=== PATIENT | male | born 1980 | race Caucasian/White ===

== ENCOUNTER 2017-12-21 21:03 | Emergency (ER) | payer BC, OTHER ==
[2017-12-21 21:14] VITALS: BP 152/104
[2017-12-21] MEDS ORDERED: Ibuprofen TAB* 400 MG PO ONE (22:23)
--- NOTE | 2017-12-21 22:36 | UC ---
Lamont Shankar Gabriel scribed for Rufina Dias MD on 12/21/17 at 2214 . Upper Extremity HPI - HPI Summary HPI Summary: This patient is a 37 year old M presenting to [facility] with a chief complaint of bilateral shoulder pain that began yesterday. Pt had a general illness two days ago which caused mild vomiting and diarrhea that has since resolved. The last episode of diarrhea was this morning. The patient rates the pain 7/10 in severity. Pt states the pain will radiate across his upper thoracic cavity and slightly into his neck. Aches so much it prevented sleep last night. Patient reports nausea. Patient denies ABD pain, rashes, numbness/tingling, and urinary symptoms. Pt expressed some concern for a possible MD, but he has no shortness of breath or other symptoms. Typically blood pressure is normal, although he does not do checks all that often. 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 Drinks 1-2 beers 3 or 4 nights per week. - History of Current Complaint Chief Complaint: UCUpperExtremity Stated Complaint: SHOULDER PAIN Time Seen by Provider: 12/21/17 22:05 Hx Obtained From: Patient Onset/Duration: Still Present Severity Initially: Moderate Severity Currently: Moderate Pain Intensity: 7 Pain Scale Used: 0-10 Numeric Associated Signs And Symptoms: Positive: Other - nausea - Allergies/Home Medications Allergies/Adverse Reactions: Allergies Allergy/AdvReac Type Severity Reaction Status Date / Time No Known Allergies Allergy Verified 12/21/17 21:14 PMH/Surg Hx/FS Hx/Imm Hx Previously Healthy: Yes Other History Of: Negative For: Anticoagulant Therapy - Surgical History Surgical History: Yes Surgery Procedure, Year, and Place: tooth extraction - Family History Known Family History: Positive: Hypertension - father Negative: Cardiac Disease, Seizure Disorder, Blood Disorder - Social History Occupation: Employed Full-time Lives: With Family - and daughter Alcohol Use: Weekly Alcohol Amount: 4-5 times a week Substance Use Type: None Smoking Status (MU): Former Smoker Review of Systems Constitutional: Fatigue, Other Skin: Negative Eyes: Negative ENT: Negative Respiratory: Negative Cardiovascular: Negative Gastrointestinal: Nausea Genitourinary: Negative Motor: Negative Neurovascular: Negative Musculoskeletal: Arthralgia, Other: - bilateral UE pain Neurological: Negative Psychological: Negative Is Patient Immunocompromised?: No All Other Systems Reviewed And Are Negative: Yes Physical Exam Triage Information Reviewed: Yes Appearance: Well-Nourished, Ill-Appearing - looks fatigued., Pain Distress - moderate Vital Signs: Initial Vital Signs Temp 97.7 F 12/21/17 21:11 Pulse 67 12/21/17 21:11 Resp 18 12/21/17 21:11 BP 152/104 12/21/17 21:11 Pulse Ox 99 12/21/17 21:11 ENT: Positive: Pharynx normal Neck exam: Other - no bony spinal tenderness. Neck: Positive: Supple, Nontender, No Lymphadenopathy Respiratory: Positive: Lungs clear, Normal breath sounds Cardiovascular: Positive: RRR, No Murmur Abdominal Exam: Normal Abdomen Description: Positive: Nontender, No Organomegaly, Soft Bowel Sounds: Positive: Present Musculoskeletal: Positive: Strength Intact, ROM Intact - bilateral full rom in shoulders. Neurological Exam: Normal Neurological: Positive: Alert, Muscle Tone Normal Psychological Exam: Other - fatigued, mildly depressed affect. Skin Exam: Normal Diagnostics - Laboratory Diagnostic Studies Completed/Ordered: labs to check blood count, rule out liver dysfunction. - EKG Cardiac Rate: NL Cardiac Rhythm: Sinus: Normal Ectopy: None ST Segment: Normal Upper Extremity Course/Dx - Course Course Of Treatment: ibuprofen for ache. labs to assess--consider gall bladder disease, rule out Lyme disease. BP noted and advised to follow up with PCP. - Differential Dx/Diagnosis Provider Diagnoses: myalgias NYD following episodes of vomiting. Elevated blood pressure without a previous diagnoses of hypertension Discharge - Sign-Out/Discharge Documenting (check all that apply): Discharge/Admit/Transfer - Discharge Plan Condition: Critical Disposition: HOME Patient Education Materials: Gastroenteritis (ED) Referrals: Rowdy Cruz MD [Primary Care Provider] - Additional Instructions: The cause of the ache in your shoulders is not clear. It could be related to a viral illness which caused nausea and vomiting. Your EKG is normal and does not suggest heart strain. The lab work will check for liver inflammation, and also screen for Lyme disease. Use ibuprofen 600 to 800 mg three times daily for control of pain. Follow up with Dr. Cruz for a repeat blood pressure reading and reassessment of symptoms if they persist. Your blood pressure was elevated during today's visit, 152/104. Please follow up with your primary care provider in 1-2 weeks. - Billing Disposition and Condition Condition: CRITICAL Disposition: HOME The documentation as recorded by the Lamont hidalgo Gabriel accurately reflects the service I personally performed and the decisions made by me, Ruifna Dias MD.
[2017-12-22 10:58] LABS: Hematocrit 45 % (42-52); Hemoglobin 15.4 g/dl (14.0-18.0); Mean Corpuscular HGB Conc 35 g/dl (31-36); Mean Corpuscular Hemoglobin 30 pg (27-31); Mean Corpuscular Volume 87 fL (80-94); Platelet Count 197 10^3/ul (150-450); Red Blood Count 5.11 10^6/ul (4.0-5.4); Red Cell Distribution Width 13 % (10.5-15); White Blood Count 7.5 10^3/ul (3.5-10.8)
[2017-12-22 11:09] LABS: EGFR Non-African American 105.1 (>60)
[2017-12-22 11:21] LABS: ABS Basophils 0.2 10^3/ul (0-0.2); ABS Eosinophils 0.2 10^3/ul (0-0.6); ABS Lymphocytes 1.8 10^3/ul (1.0-4.8); ABS Monocytes 0.9 10^3/ul (0-0.8); ABS Neutrophils 4.4 10^3/ul (1.5-7.7); ABS Nucleated RBC 0 10^3/ul; Eosinophil % 2.3 % (0-6); Lymphocyte % 23.6 % (25-47); Nucleated Red Blood Cells % 0.1
--- NOTE | 2017-12-22 19:33 | UC ---
- Progress Note Progress Note: 12/22/2017 CBC:WNL CMP: WNL CRP: 48.49 elevated. Please call back and tell him he needs to f/u w/ his PCP for further management. Autumn Kim PA-C Discharge - Sign-Out/Discharge Documenting (check all that apply): Discharge/Admit/Transfer - D/C home - Discharge Plan Condition: Stable Disposition: HOME Patient Education Materials: Gastroenteritis (ED) Referrals: Rowdy Cruz MD [Primary Care Provider] - Additional Instructions: The cause of the ache in your shoulders is not clear. It could be related to a viral illness which caused nausea and vomiting. Your EKG is normal and does not suggest heart strain. The lab work will check for liver inflammation, and also screen for Lyme disease. Use ibuprofen 600 to 800 mg three times daily for control of pain. Follow up with Dr. Cruz for a repeat blood pressure reading and reassessment of symptoms if they persist. Your blood pressure was elevated during today's visit, 152/104. Please follow up with your primary care provider in 1-2 weeks. - Billing Disposition and Condition Condition: STABLE Disposition: HOME
--- NOTE | 2017-12-23 17:11 | UC ---
- Progress Note Progress Note: lyme serology negative no change in management anaj 12/23/2017 1710 Discharge - Sign-Out/Discharge Documenting (check all that apply): Discharge/Admit/Transfer - Discharge Plan Condition: Stable Disposition: HOME Patient Education Materials: Gastroenteritis (ED) Referrals: Rowdy Cruz MD [Primary Care Provider] - Additional Instructions: The cause of the ache in your shoulders is not clear. It could be related to a viral illness which caused nausea and vomiting. Your EKG is normal and does not suggest heart strain. The lab work will check for liver inflammation, and also screen for Lyme disease. Use ibuprofen 600 to 800 mg three times daily for control of pain. Follow up with Dr. Cruz for a repeat blood pressure reading and reassessment of symptoms if they persist. Your blood pressure was elevated during today's visit, 152/104. Please follow up with your primary care provider in 1-2 weeks. - Billing Disposition and Condition Condition: STABLE Disposition: HOME
== END 2017-12-21 22:40 | disposition home or self-care (01) ==
LOC: UCEAST 21:03
DX: M79.1 Myalgia (principal); R11.2 Nausea with vomiting, unspecified; R03.0 Elevated blood-pressure reading, without diagnosis of hypertension; Z87.891 Personal history of nicotine dependence
CPT/HCPCS: 36415; 80053; 85025; 86140; 86618; 93005; 99212; A9270-GY; G0463